=== PATIENT | male | born 1995 | race American Indian/Alaskan Native ===

== ENCOUNTER 2020-12-24 00:04 | Emergency (ER) | payer OTHER ==
[2020-12-24 00:28] VITALS: BP 145/92
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
== END 2020-12-24 01:00 | disposition home or self-care (01) ==
LOC: ED 00:04
DX: M25.511 Pain in right shoulder (principal); M25.512 Pain in left shoulder; M25.521 Pain in right elbow; M25.561 Pain in right knee; F12.90 Cannabis use, unspecified, uncomplicated; Z98.890 Other specified postprocedural states; V49.49XA Driver injured in collision with other motor vehicles in traffic accident, initial encounter; Y92.410 Unspecified street and highway as the place of occurrence of the external cause; Y93.89 Activity, other specified; Y99.8 Other external cause status
CPT/HCPCS: 99282